=== PATIENT | male | born 1955 ===

== ENCOUNTER → 2017-03-28 | Outpatient (CLI) | payer OTHER | LOC: CIMAGING 09:07 | PROVIDERS: ATTEND Orthopaedic Surgery | DX: M17.9 Osteoarthritis of knee, unspecified (principal) ==

== ENCOUNTER 2017-04-07 07:47 | Observation (INO) | payer OTHER ==
[2017-04-07] MEDS ORDERED: LIDOCAINE 1% 2 ML INJ ONE (08:17)
[2017-04-07] MEDS ORDERED: ONDANSETRON DISINTEGRATING 4 MG TAB PO PRN (09:17)
[2017-04-07] MEDS ORDERED: PROMETHAZINE HCL 25 MG SUPPR PR PRN (09:17)
[2017-04-07] MEDS ORDERED: TEMAZEPAM 15 MG CAP PO PRN (09:17)
[2017-04-07] MEDS ORDERED: PHARMACY PAIN CONSULT 1 EA MISC PRN (09:17)
[2017-04-07] MEDS ORDERED: LACTULOSE 20 GM/30 ML UDCUP PO PRN (09:17)
[2017-04-07] MEDS ORDERED: CYCLOBENZAPRINE 10 MG TAB PO PRN (09:17)
[2017-04-07] MEDS ORDERED: DIPHENOXYLATE/ATROPINE LOMOTIL 1 TAB PO PRN (09:17)
[2017-04-07] MEDS ORDERED: DIAZEPAM 5 MG TAB PO PRN (09:17)
[2017-04-07] MEDS ORDERED: traMADol 50 MG TAB PO PRN (09:17)
[2017-04-07] MEDS ORDERED: ONDANSETRON 4 MG/2 ML VIAL IVP PRN (09:17)
[2017-04-07] MEDS ORDERED: MAGNESIUM HYDROXIDE 30 ML UDCUP PO PRN (09:17)
[2017-04-07] MEDS ORDERED: diphenhydrAMINE 25 MG CAP PO PRN (09:17)
[2017-04-07] MEDS ORDERED: POLYETHYLENE GLYCOL 3350 17 GM PKT PO PRN (09:17)
[2017-04-07] MEDS ORDERED: BISACODYL 10 MG SUPP PR PRN (09:17)
[2017-04-07] MEDS ORDERED: METOCLOPRAMIDE 10 MG/2 ML VIAL IVP PRN (09:17)
[2017-04-07] MEDS ORDERED: ALPRAZolam 0.5 MG TAB PO PRN (09:18)
[2017-04-07] MEDS ORDERED: FAMOTIDINE 20 MG TAB PO ONE (09:30)
[2017-04-07] MEDS ORDERED: LR 1,000 ML IV SCH (09:30)
[2017-04-07] MEDS ORDERED: ACETAMINOPHEN 325 MG TAB PO ONE (09:30)
[2017-04-07] MEDS ORDERED: CEFAZOLIN 2 GM/DEXTR 100 ML IV ONE (09:30)
[2017-04-07] MEDS ORDERED: CHLORHEXIDINE GLUC HIBICLENS 118 ML BTL TP ONE (09:30)
[2017-04-07] MEDS ORDERED: ROPI/epiNEPH/KETOROLAC/morphINE JOINT COCKTAIL IU ONE (09:30)
[2017-04-07] MEDS ORDERED: LR 1,000 ML IV ONE (09:31)
[2017-04-07] MEDS ORDERED: THROMBIN (BOVINE) 5,000 UNIT VIAL TP ONE (09:45)
[2017-04-07] MEDS ORDERED: CALCIUM CHLORIDE 1 GM/10 ML INJ ONE (09:45)
[2017-04-07] MEDS ORDERED: ceFAZolin 1 GM/5 ML SYR ONE (09:45)
[2017-04-07] MEDS ORDERED: fentaNYL 100 MCG/2 ML INJ ONE ×2 (09:55→11:26)
[2017-04-07] MEDS ORDERED: PROPOFOL 200 MG/20 ML VIAL ONE (09:55)
[2017-04-07] MEDS ORDERED: MIDAZOLAM 2 MG/2 ML VIAL ONE (10:15)
[2017-04-07] MEDS ORDERED: ONDANSETRON 4 MG/2 ML VIAL ONE (10:58)
[2017-04-07] MEDS ORDERED: METOCLOPRAMIDE 10 MG/2 ML VIAL ONE (10:58)
[2017-04-07] MEDS ORDERED: ceFAZolin 2 GM/DEXTROSE 100 ML IV SCH (14:00)
[2017-04-07] MEDS: ACETAMINOPHEN 325 MG TAB PO SCH ×2 (16:19→18:12)
[2017-04-07] MEDS: ceFAZolin 2 GM/DEXTROSE 100 ML IV SCH (16:29)
[2017-04-07] MEDS: oxyCODONE IR 5 MG TAB PO PRN ×3 (16:37→21:23)
[2017-04-07] MEDS: metFORMIN HCL 500 MG TAB PO SCH (18:13)
[2017-04-07] MEDS: BUDESONIDE/FORMOTEROL 160/4.5 60 PUFFS/MDI IH SCH (21:16)
[2017-04-07] MEDS: ASPIRIN 325 MG TAB PO SCH (21:23)
[2017-04-07] MEDS: FAMOTIDINE 20 MG TAB PO SCH (21:23)
[2017-04-07] MEDS: SENNOSIDES/DOCUSATE SODIUM TAB PO SCH (21:34)
[2017-04-08] MEDS: ceFAZolin 2 GM/DEXTROSE 100 ML IV SCH (00:36)
[2017-04-08] MEDS: ACETAMINOPHEN 325 MG TAB PO SCH ×3 (00:39→12:12)
[2017-04-08 04:42] VITALS: RESP 18; O2SAT 95
[2017-04-08 05:26] LABS: HEMATOCRIT 36.7 % (40.0-51.0); HEMOGLOBIN 12.3 g/dL (13.7-17.5)
--- NOTE | 2017-04-08 07:45 | GDS ---
[f rep st] DISCHARGE SUMMARY ADMISSION DIAGNOSIS: Left knee medial compartment arthritis. POSTOP DIAGNOSIS: Left knee medial compartment arthritis. PROCEDURE: Left partial knee replacement. OPERATIVE INDICATIONS: The patient is a 61-year-old gentleman who has persistent pain and discomfor t over the inner aspect of his left knee. He has primarily medial compartment arthritis to his left knee with instability in a varus and valgus plane. Given the persistent nature of his symptoms, I have recommended partial knee replacement as the best treatment option. He understood the risks, be nefits, alternatives, and wished to proceed. Written consent was signed and placed in [facility] rt. HOSPITAL COURSE: The patient was admitted to the hospital floor after uncomplicated partial knee re placement. Did have slight issues with nausea from the pain medication. At the time of discharge, he is tolerating an oral diet. His pain is well controlled on oral medicines. He is voiding withou t difficulty. Dressing is clean, dry, and intact. He has been cleared by Physical Therapy. He has negative Homans on bilateral lower extremities. X-rays are stable with no fracture or lucency. DISCHARGE ACTIVITIES: Weightbearing as tolerated. Range of motion as tolerated. Daily dressing ch anges. No soaking or immersion. He may shower without the bandage. Follow up in 2 weeks. Seek at tention for increasing redness, swelling, drainage, discharge, or other focal complaint. Copy requested to: PCP /[id number]/[id number]
[2017-04-08 08:07] VITALS: BP 165/90; PULSE 67; TEMP 98.6
[2017-04-08] MEDS ORDERED: NON-FORMULARY NEW DRUG (Losartan Potassium [Cozaar] 100 MG) PO SCH (09:00)
[2017-04-08] MEDS ORDERED: CHOLECALCIFEROL VIT D3 1,000 UNITS TAB PO SCH (09:00)
[2017-04-08] MEDS ORDERED: LOSARTAN POTASSIUM 50 MG TAB PO SCH (09:00)
[2017-04-08] MEDS ORDERED: NON-FORMULARY NEW DRUG (Pravastatin Sodium [Pravachol] 80 MG) PO SCH (09:00)
[2017-04-08] MEDS ORDERED: FENOFIBRATE 160 MG PO SCH (09:00)
[2017-04-08] MEDS ORDERED: FENOFIBRATE 145 MG TAB PO SCH (09:00)
[2017-04-08] MEDS ORDERED: PRAVASTATIN SODIUM 40 MG TAB PO SCH (09:00)
[2017-04-08] MEDS: FAMOTIDINE 20 MG TAB PO SCH (09:05)
[2017-04-08] MEDS: ASPIRIN 325 MG TAB PO SCH (09:05)
[2017-04-08] MEDS: SENNOSIDES/DOCUSATE SODIUM TAB PO SCH (09:05)
[2017-04-08] MEDS: metFORMIN HCL 500 MG TAB PO SCH (09:06)
[2017-04-08] MEDS: BUDESONIDE/FORMOTEROL 160/4.5 60 PUFFS/MDI IH SCH (10:34)
== END 2017-04-08 13:33 | disposition home or self-care (01) ==
LOC: F3N 07:47 → OBSVTOIN 07:47 → INTOOBSV 07:47 → EDSTATUS 08:45 → F3N 13:13
PROVIDERS: ADMIT Orthopaedic Surgery; ATTEND Orthopaedic Surgery
PROC: 8E0YXBZ Computer Assisted Procedure of Lower Extremity (ICD-10-PCS; principal; 2017-04-07 09:45)
PROC: 0SRD0JZ Replacement of Left Knee Joint with Synthetic Substitute, Open Approach (ICD-10-PCS; principal; 2017-04-07 09:45)
DX: M17.12 Unilateral primary osteoarthritis, left knee (principal); E78.5 Hyperlipidemia, unspecified; I10 Essential (primary) hypertension; K21.9 Gastro-esophageal reflux disease without esophagitis; E11.9 Type 2 diabetes mellitus without complications; I70.90 Unspecified atherosclerosis; J45.30 Mild persistent asthma, uncomplicated; G47.33 Obstructive sleep apnea (adult) (pediatric); G58.8 Other specified mononeuropathies; Z79.82 Long term (current) use of aspirin
CPT/HCPCS: 20985; 27446; 73560; 97116; 97161; 97165; G0378; C1713; J0171; J0690; J1885; J2250; J2405; J2704; J2765; J2795; J3010